=== PATIENT | female | born 1945 | race African-American/Black ===

== ENCOUNTER 2019-03-05 02:14 | Emergency (ER) | payer MEDICARE, OTHER ==
[2019-03-05] MEDS: IBUPROFEN 600 MG TAB PO (03:47)
== END 2019-03-05 07:41 | disposition home or self-care (01) ==
LOC: FTE 07:41
DX: M79.604 Pain in right leg (principal); M79.605 Pain in left leg
CPT/HCPCS: 93970; 99282